=== PATIENT | female | born 1965 | race African-American/Black ===

== ENCOUNTER → 2019-01-29 | Outpatient (CLI) | payer BC ==
--- NOTE | 2019-02-01 08:13 | MM ---
Reason for exam: screening (asymptomatic). History: Patient is postmenopausal and had first child at age 30. Physical Findings: A clinical breast exam by your physician is recommended on an annual basis and results should be correlated with mammographic findings. MG 3D Screening Mammo W/Cad Bilateral CC and MLO view(s) were taken. No prior studies available for comparison. The breast tissue is heterogeneously dense. This may lower the sensitivity of mammography. There is no discrete abnormality. ASSESSMENT: Negative, BI-RAD 1 RECOMMENDATION: Routine screening mammogram of both breasts in 1 year.
== END | disposition home or self-care (01) ==
LOC: RADMAMWWP 08:55
PROVIDERS: ATTEND Family Medicine
DX: Z12.31 Encounter for screening mammogram for malignant neoplasm of breast (principal)
CPT/HCPCS: 77063; 77067

== ENCOUNTER → 2021-01-19 | Outpatient (CLI) | payer BC ==
--- NOTE | 2021-01-19 15:06 | CT ---
EXAMINATION TYPE: CT abdomen w con DATE OF EXAM: 01/19/2021 COMPARISON: None HISTORY: Abdominal pain and hardening to left of navel. CT DLP: 1202.9 mGycm CONTRAST: CT scan of the abdomen is performed with Oral Contrast and with IV Contrast, patient injected with 10 0 mL of Isovue 370. FINDINGS: LUNG BASES-: Right infrahilar pulmonary nodule measures 1.3 cm. Small pleural-based nodule right lung base at the lateral sulcus measuring 4.[address] of the chest is recommended for further evaluation. LIVER/GB: No calcified gallstones. No space occupying hepatic lesion. Biliary tree is of normal ca liber. PANCREAS: No inflammation. No distinct mass. SPLEEN: No splenic enlargement. No lesion seen. ADRENALS: No nodule. No thickening. KIDNEYS/BLADDER: No hydronephrosis. No nephrolithiasis. No distinct renal mass. Urinary bladder g rossly unremarkable. BOWEL: Normal appendix. Normal bowel caliber. No inflammation. GENITAL ORGANS: Partially imaged pelvic mass is of uncertain etiology and CT of the pelvis is recomm ended. Mass extends to the level of the umbilicus and measures at least 16.3 cm in transverse dimensi on by 14.2 cm in AP dimension. Mass is of uncertain etiology and could reflect an ovarian mass versus uterine mass. LYMPH NODES: No greater than 1cm abdominal or pelvic lymph nodes are appreciated. AORTA: No significant abnormality. OSSEOUS STRUCTURES: No significant abnormality is seen. OTHER: No significant additional abnormality is seen. IMPRESSION: 1. Partially imaged pelvic mass. Mass of uterine or ovarian origin is difficult to exclude. CT of the pelvis with contrast is recommended. 2. Pulmonary nodules as discussed for which a CT of the chest is also recommended.
== END | disposition home or self-care (01) ==
LOC: RADCTMAIN 13:41
PROVIDERS: ATTEND Family Medicine
DX: R19.00 Intra-abdominal and pelvic swelling, mass and lump, unspecified site (principal)
CPT/HCPCS: 74160; Q9967 ×2

== ENCOUNTER 2021-02-15 10:10 | Day surgery (SDC) | payer BC ==
[2021-01-26 12:21] VITALS: BMI 35.5
[2021-02-15] MEDS ORDERED: LIDOCAINE 1% (10MG/ML) FOR IV START INTRADERMA PRN (10:33)
[2021-02-15] MEDS ORDERED: LACTATED RINGERS 1,000 ML IV SCH (10:33)
[2021-02-15 11:05] VITALS: RESP 16; TEMP 97.2
[2021-02-15] MEDS ORDERED: PROPOFOL 10 MG/ML 20 ML VIAL IV ONE (12:19)
--- NOTE | 2021-02-15 12:25 | P.GSHP ---
History of Present Illness H&P Date: 02/15/21 Chief Complaint: Diarrhea A 55-year-old female with history of diarrhea. Patient rents today for colonoscopy tonight for possible colitis. Past Medical History Past Medical History: Sleep Apnea/CPAP/BIPAP Additional Past Medical History / Comment(s): OCCASSIONAL VERTIGO. FREQUENT BOUTS OF DIARRHEA-improved History of Any Multi-Drug Resistant Organisms: None Reported Past Surgical History: No Surgical Hx Reported Additional Past Surgical History / Comment(s): PARTIAL GLOSSECTOMY. COLONOSCOPY Past Anesthesia/Blood Transfusion Reactions: No Reported Reaction Smoking Status: Never smoker, Second hand smoke exposure - Past Family History Mother Brother(s) Family Medical History: Cancer Brother(s) Family Medical History: Deep Vein Thrombosis (DVT) Medications and Allergies Home Medications Medication Instructions Recorded Confirmed Type Multivitamins, Thera [Multivitamin 1 tab PO DAILY 02/13/21 02/13/21 History (formulary)] [place] 3-6-9 Supplement 1 tab PO DAILY 02/13/21 02/13/21 History Allergies Allergy/AdvReac Type Severity Reaction Status Date / Time No Known Allergies Allergy Verified 02/15/21 10:41 Surgical - Exam Vital Signs Temp Pulse Resp BP Pulse Ox 97.2 F L 65 16 163/83 96 02/15/21 10:55 02/15/21 10:55 02/15/21 10:55 02/15/21 10:55 02/15/21 10:55 - General well developed, well nourished, no distress - Eyes PERRL - ENT normal pinna - Neck no masses - Respiratory normal expansion - Cardiovascular Rhythm: regular - Abdomen Abdomen: soft, non tender Assessment and Plan Assessment: Diarrhea. We'll perform colonoscopy.
--- NOTE | 2021-02-15 12:34 | P.OP ---
Date of Procedure: 02/15/21 Preoperative Diagnosis: Diarrhea Postoperative Diagnosis: Normal colonoscopy Rectal biopsy pathology pending Procedure(s) Performed: Colonoscopy Anesthesia: MAC Surgeon: Santiago Joiner Pathology: other (rectum) Description of Procedure: The patient's placed on the endoscopy table lateral position. She received IV sedation. Digital rectal exam was performed which revealed no abnormality. The flexible colonoscope was then placed patient anus passed throughout the entire colon. The ileocecal valve was visualized. The cecum, ascending and transverse colon appeared normal. The descending and sigmoid colon appeared normal. Scope was then brought back the rectum this appeared normal. Due to the patient's symptoms with diarrhea a random rectal biopsy performed. The scope was withdrawn for patient.
[2021-02-15 13:01] VITALS: BP 162/98; PULSE 70
== END 2021-02-15 13:12 ==
LOC: ORWHC2ENDO 10:10
PROVIDERS: ATTEND Surgery
DX: K62.1 Rectal polyp (principal); R19.7 Diarrhea, unspecified; R42 Dizziness and giddiness; G47.33 Obstructive sleep apnea (adult) (pediatric); Z98.890 Other specified postprocedural states; Z77.22 Contact with and (suspected) exposure to environmental tobacco smoke (acute) (chronic); Z80.9 Family history of malignant neoplasm, unspecified; Z82.49 Family history of ischemic heart disease and other diseases of the circulatory system; Z97.2 Presence of dental prosthetic device (complete) (partial)
CPT/HCPCS: 88305; 45380; J2704

== ENCOUNTER → 2021-03-28 | Outpatient (CLI) | payer BC ==
--- NOTE | 2021-03-28 13:45 | CT ---
EXAMINATION TYPE: CT pelvis w con DATE OF EXAM: 03/28/2021 COMPARISON: CT 01/19/2021 HISTORY: Uterine mass CT DLP: 1507 mGycm Automated exposure control for dose reduction was used. TECHNIQUE: Helical acquisition of images through the pelvis have been completed. CONTRAST: Performed with Oral Contrast and with IV Contrast, patient injected with 100 ml mL of Isovue 300. FINDINGS: REPRODUCTIVE ORGANS: Heterogeneous pelvic mass is likely associated with the uterus and measures appr oximately 13.8 x 16.7 x 17.6 cm. BOWEL: No significant abnormality is seen. FREE AIR: No Free Air visible. ASCITES: Minimal free fluid present within the pelvis. PELVIC ADENOPATHY: None visualized. RETROPERITONEAL ADENOPATHY: No Retroperitoneal Adenopathy visible. URINARY BLADDER: No significant abnormality is seen. OSSEOUS STRUCTURES: Facet arthropathy changes are present at the lower lumbar spine, there is degene rative disc change at the lumbosacral junction. IMPRESSION: FINDINGS FELT LIKELY TO REPRESENT FIBROID UTERUS, CONSIDER TEMPLATE STORAGE CLERK CONSULT
== END | disposition home or self-care (01) ==
LOC: RADCTMAIN 07:52
PROVIDERS: ATTEND Family Medicine
DX: N85.8 Other specified noninflammatory disorders of uterus (principal)
CPT/HCPCS: 72193; Q9967

== ENCOUNTER → 2021-05-14 | Outpatient (CLI) | payer BC ==
--- NOTE | 2021-05-15 08:13 | CT ---
EXAMINATION TYPE: CT chest w con DATE OF EXAM: 05/14/2021 COMPARISON: CT abdomen 01/19/2021 HISTORY: nodules CT DLP: 545.3 mGycm Automated exposure control for dose reduction was used. CONTRAST: CT scan of the chest is performed with IV Contrast, patient injected with 100 mL of Isovue 300. FINDINGS: LUNGS: 1.1 cm right infrahilar nodule is redemonstrated with prior measurement of 1.3 cm. This may re flect a lymph node. 4 mm pulmonary nodule right lateral lung sulcus is slightly smaller in size versu s 4.6 mm previously. Parenchymal scarring right medial lung. No additional nodules are seen. No evide nce for infiltrate or volume loss. MEDIASTINUM: There are no greater than 1 cm hilar or mediastinal lymph nodes. No pericardial effusi on is seen. Thoracic aorta is of normal caliber. The heart is not enlarged. UPPER ABDOMEN: No significant abnormality appreciated. OTHER: No additional significant abnormality is seen. IMPRESSION: Nonspecific pulmonary nodularity previously slightly smaller in size. No new nodules seen . Documented stability over a two-year timeframe is recommended.
== END | disposition home or self-care (01) ==
LOC: RADCTMAIN 17:47
PROVIDERS: ATTEND Family Medicine
DX: R91.8 Other nonspecific abnormal finding of lung field (principal)
CPT/HCPCS: 71260; Q9967